=== PATIENT | female | born 1980 | race Caucasian/White ===

== ENCOUNTER 2019-03-18 18:41 | Emergency (ER) | payer BC, OTHER ==
[~2019-03-18] VITALS: Ht 154.9 cm; Wt 90.7 kg
[2019-03-18] MEDS ORDERED: KETOROLAC TROMETHAMINE 60 MG/2 ML VIAL IM ONE (19:45)
[2019-03-18] MEDS ORDERED: KETOROLAC TROMETHAMINE 60 MG/2 ML VIAL ONE (19:46)
== END 2019-03-18 21:44 | disposition home or self-care (01) ==
LOC: ER 18:41
DX: K62.5 Hemorrhage of anus and rectum (principal); R19.8 Other specified symptoms and signs involving the digestive system and abdomen
CPT/HCPCS: 96372; 99282; J1885